=== PATIENT | male | born 1960 | race American Indian/Alaskan Native ===

== ENCOUNTER 2020-08-16 09:28 | Outpatient (CLI) | payer OTHER ==
--- NOTE | 2020-08-16 14:03 | Vascular Lab Report ---
Ultrasound Abdominal Doppler, Limited HISTORY: ABDOMINAL PAIN x 1 YEAR TECHNIQUE: Grayscale and color imaging performed of the abdominal aorta, celiac axis, and superior mesenteric artery. COMPARISON: None. FINDINGS: Study was difficult due to patient's body habitus, ability to cooperate, and overlying batsheva l gas. The abdominal aorta, celiac axis, and superior mesenteric artery all appear patent, without evidence of aneurysm or hemodynamically significant stenosis. No other significant abnormality. IMPRESSION: No sonographic evidence of significant abnormality within the abdominal aorta, celiac axi s or superior mesenteric artery. Scribed by: Yu Guaman RDMS, RVT Scribed: 08/16/2020 10:33 AM Signer Name: Chirag Álvarez MD Signed: 08/16/2020 1:58 PM Workstation Name: [id number]
== END 2020-08-16 09:29 | disposition home or self-care (01) ==
LOC: VAS 09:28
PROVIDERS: ATTEND Surgery Vascular Surgery
DX: R10.9 Unspecified abdominal pain (principal)
CPT/HCPCS: 93979